=== PATIENT | female | born 1985 | race Caucasian/White ===

== ENCOUNTER 2017-03-30 20:40 | Emergency (ER) | payer MEDICAID, OTHER ==
[~2017-03-30] VITALS: Ht 160 cm; Wt 65.5 kg
[~2017-03-30 20:40] MED LIST: PREN1TAB12 PO
[2017-03-30 20:45] VITALS: Ht 160 cm; Wt 65.5 kg
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
== END 2017-03-30 22:05 | disposition home or self-care (01) ==
LOC: FTE 20:40
DX: Z48.01 Encounter for change or removal of surgical wound dressing (principal)
CPT/HCPCS: 99281

== ENCOUNTER 2017-05-01 23:24 | Emergency (ER) | payer MEDICAID ==
[~2017-05-01] VITALS: Ht 167.6 cm; Wt 71.4 kg
[2017-05-01 23:29] VITALS: Ht 167.6 cm; Wt 71.4 kg
[2017-05-02] MEDS ORDERED: KETOROLAC 60 MG INJ IM STA (00:46)
[2017-05-02] MEDS ORDERED: OXYCODONE/ACETAMINOPHEN (5/325) TAB PO ONE (01:00)
[2017-05-02] MEDS ORDERED: IBUP-1542 PO (01:44)
[2017-05-02] MEDS ORDERED: OXYC-279 PO (01:45)
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
[2017-05-02 02:40] VITALS: BP 114/72; PULSE 68; RESP 18
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
== END 2017-05-02 02:45 | disposition home or self-care (01) ==
LOC: FTE 23:24
DX: M25.511 Pain in right shoulder (principal)
CPT/HCPCS: 71020; 71100; 73000; 73030; 96372; J1885; Z7502; Z7610

== ENCOUNTER 2017-09-01 21:57 | Emergency (ER) | END 2017-09-02 00:15 | disposition left against medical advice (07) ==